=== PATIENT | female | born 1995 | race Two or more races ===

== ENCOUNTER 2021-03-23 07:47 | Emergency (ER) | payer MEDICAID ==
--- NOTE | 2021-03-23 08:12 | EDM.PDOC ---
ED HPI GENERAL MEDICAL PROBLEM - General Chief Complaint: General Stated Complaint: HEAVY BLEEDING Time Seen by Provider: 03/23/21 08:08 Source of Information: Reports: Patient History Limitations: Reports: No Limitations - History of Present Illness INITIAL COMMENTS - FREE TEXT/NARRATIVE: 25-year-old female who reports that last week she took 4 or 5 home tests and all of them were positive. She is unsure of her last normal menstrual period as she has very irregular menses since her IUD was removed in December 2020. She reports this morning she got up to go to the bathroom at around 6:30 to 7 AM and felt like something past and noted that a blood clot in come out her vagina and since then she has had what she feels is heavy vaginal bleeding. She also has developed lower abdominal/pelvic pain and cramping and low back pain. He's pains are aching and cramping. There rated by her as a/10. She has had no nausea or vomiting. No dysuria. She has been eating and drinking normally. She states yesterday she felt somewhat bloated but that is not something that is unusual for her and she really didn't notice anything different yesterday and had no vaginal bleeding yesterday. No fevers or chills. No history of trauma. The patient is a . There are no other associated signs or symptoms. There are no other modifying factors. 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 Social & Family History - Tobacco Use Tobacco Use Status *Q: Former Tobacco User Used Tobacco, but Quit: Yes Month/Year Tobacco Last Used: 2019 Tobacco Use Comment: pt states she used to vape a few years ago but has quit - Caffeine Use Caffeine Use: Reports: None - Alcohol Use Alcohol Use History: No - Recreational Drug Use Recreational Drug Use: No - Living Situation & Occupation Living situation: Reports: Social History Comment: Recently moved here from [facility]. ED ROS GENERAL - Review of Systems Review Of Systems: See Below Constitutional: Denies: Fever, Chills HEENT: Denies: Throat Pain, Throat Swelling Respiratory: Denies: Shortness of Breath, Cough Cardiovascular: Denies: Chest Pain, Palpitations GI/Abdominal: Reports: Abdominal Pain. Denies: Diarrhea, Nausea, Vomiting : Reports: Irregular Menses. Denies: Dysuria, Flank Pain, Frequency, Hematuria Musculoskeletal: Reports: Back Pain. Denies: Neck Pain Skin: Denies: Diaphoresis, Rash Neurological: Denies: Dizziness, Headache Hematologic/Lymphatic: Denies: Easy Bleeding, Easy Bruising ED EXAM, GENERAL - Physical Exam Exam: See Below Exam Limited By: No Limitations General Appearance: Alert, WD/WN, No Apparent Distress Eye Exam: Bilateral Eye: EOMI, Normal Inspection (Sclera are anicteric) Ears: Normal External Exam, Hearing Grossly Normal Ear Exam: Bilateral Ear: Auricle Normal Nose: Normal Inspection, Normal Mucosa, No Blood Throat/Mouth: Normal Inspection, Normal Oropharynx, Normal Voice, No Airway Compromise Head: Atraumatic, Normocephalic Neck: Normal Inspection, Supple, Non-Tender, Full Range of Motion Respiratory/Chest: No Respiratory Distress, Lungs Clear, Normal Breath Sounds, No Accessory Muscle Use, Chest Non-Tender Cardiovascular: Normal Peripheral Pulses, Regular Rate, Rhythm, No Murmur Peripheral Pulses: 2+: Radial (L), Radial (R), Dorsalis Pedis (L), Dorsalis Pedis (R) GI/Abdominal: Normal Bowel Sounds, Soft, No Mass, Tender (Follow-up tenderness in the suprapubic area.). No: Guarding, Rebound (Female) Exam: Normal External Exam, Vaginal Bleeding, Other (Some blood in the posterior fornix. No apparent active bleeding. The cervical os was closed.). No: Cervical Dilatation Back Exam: Normal Inspection, Full Range of Motion. No: CVA Tenderness (R), CVA Tenderness (L) Extremities: Normal Inspection, Normal Range of Motion, Non-Tender, No Pedal Edema, Normal Capillary Refill Neurological: Alert, Oriented, CN II-XII Intact, Normal Cognition, No Motor/Sensory Deficits Psychiatric: Normal Affect Skin Exam: Warm, Dry, Intact, Normal Color, No Rash Course - Vital Signs Last Recorded V/S: Last Vital Signs Temp 36.7 C 03/23/21 10:28 Pulse 84 03/23/21 10:28 Resp 18 03/23/21 10:28 BP 119/76 03/23/21 10:28 Pulse Ox 100 03/23/21 10:28 - Orders/Labs/Meds Orders: Active Orders 24 hr Category Date Time Status ABO/RH TYPE [BBK] Stat Lab 03/23/21 09:00 Results CHLAMYDIA/GC AMPLIFICATION Stat Lab 03/23/21 09:23 Received PATIENT RETYPE [BBK] Stat Lab 03/23/21 09:00 Results Labs: Laboratory Tests 03/23/21 03/23/21 03/23/21 Range/Units 08:41 09:00 09:00 WBC 14.1 H (3.0-10.3) x10-3/uL RBC 4.02 (3.60-5.20) x10(6)uL Hgb 12.2 (11.4-15.5) g/dL Hct 36.7 (34.2-48.2) % MCV 91.1 (76.7-100.5) fL MCH 30.2 (23.9-33.9) pg MCHC 33.1 (31.9-34.8) g/dL RDW 12.8 (12.3-16.5) % Plt Count 210 (151-488) x10(3)uL MPV 9.0 (7.1-12.4) fL Neut % (Auto) 80.7 H (30.8-76.2) % Lymph % (Auto) 12.2 L (18.4-52.1) % [place] % (Auto) 5.9 (4.4-15.7) % Eos % (Auto) 0.8 (0.6-8.1) % Baso % (Auto) 0.4 (0.2-1.5) % Neut # (Auto) 11.4 H (1.5-6.3) x10-3/uL Lymph # (Auto) 1.7 (1.0-4.4) x10-3/uL [place] # (Auto) 0.8 (0.3-1.0) x10-3/uL Eos # (Auto) 0.1 (0.0-0.8) x10-3/uL Baso # (Auto) 0.1 (0.0-0.1) x10-3/uL HCG, Quant 017388 (<5) mIU/mL Urine HCG, Qual Positive H (NEGATIVE) Blood Type 03/23/21 Range/Units 09:00 WBC (3.0-10.3) x10-3/uL RBC (3.60-5.20) x10(6)uL Hgb (11.4-15.5) g/dL Hct (34.2-48.2) % MCV (76.7-100.5) fL MCH (23.9-33.9) pg MCHC (31.9-34.8) g/dL RDW (12.3-16.5) % Plt Count (151-488) x10(3)uL MPV (7.1-12.4) fL Neut % (Auto) (30.8-76.2) % Lymph % (Auto) (18.4-52.1) % [place] % (Auto) (4.4-15.7) % Eos % (Auto) (0.6-8.1) % Baso % (Auto) (0.2-1.5) % Neut # (Auto) (1.5-6.3) x10-3/uL Lymph # (Auto) (1.0-4.4) x10-3/uL [place] # (Auto) (0.3-1.0) x10-3/uL Eos # (Auto) (0.0-0.8) x10-3/uL Baso # (Auto) (0.0-0.1) x10-3/uL HCG, Quant (<5) mIU/mL Urine HCG, Qual (NEGATIVE) Blood Type O POSITIVE - Re-Assessments/Exams Free Text/Narrative Re-Assessment/Exam: 03/23/21 09:00: Patient qualitative test is positive. I will send blood for CBC and a quantitative hCG. I will also send for wet prep and GC and chlamydia. Patient is remaining hemodynamically stable. I will also do a pelvic exam at this point. That will be documented in the physical exam portion of my note. 03/23/21 10:12: The patient's os was closed. No apparent active bleeding at this point. CBC showed white count 14.1 with a hemoglobin of 12.2. Platelet count was normal. The patient is O+. Quantitative hCG was 170,400. The patient will need to look ultrasound and we do not have ultrasound available at [facility] [place]. I previously discussed this with the patient and she would want me to discuss her case with the doctors at [facility] in [place]. 03/23/21 10:30: I discussed the patient's case with Dr. Pérez, ED physician at [facility], and she has agreed to accept the patient in transfer. The patient will be transferred via POV by the to the emergency department at [facility] for ultrasound. The patient remains hemodynamically stable. Departure - Departure Time of Disposition: 10:40 Disposition: DC/Tfer to [facility] 02 Condition: Good Clinical Impression: Vaginal bleeding during , Threatened in first trimester - Discharge Information Referrals: PCP,None [Primary Care Provider] - Forms: ED Department Discharge Additional Instructions: Go directly to the emergency department at [facility]. You are going there to be seen to have a pelvic ultrasound performed as we discussed. You should not have anything to eat or drink and to do so by the doctors at [facility]. Sepsis Event Note (ED) - Evaluation Sepsis Screening Result: No Definite Risk - Focused Exam Vital Signs: Vital Signs Temp Pulse Resp BP Pulse Ox 03/23/21 10:28 36.7 C 84 18 119/76 100 03/23/21 07:56 37.2 C 91 16 135/88 100 - My Orders Last 24 Hours: My Active Orders 03/23/21 09:00 ABO/RH TYPE [BBK] Stat PATIENT RETYPE [BBK] Stat 03/23/21 09:23 CHLAMYDIA/GC AMPLIFICATION Stat - Assessment/Plan Last 24 Hours: My Active Orders 03/23/21 09:00 ABO/RH TYPE [BBK] Stat PATIENT RETYPE [BBK] Stat 03/23/21 09:23 CHLAMYDIA/GC AMPLIFICATION Stat
[2021-03-26 06:08] LABS: CHLAMYDIA TRACHOMATIS, NAA Positive (Negative); NEISSERIA GONORRHOEAE, NAA Negative (Negative)
== END 2021-03-23 10:52 ==
LOC: FB.ED 07:47
DX: O20.0 Threatened abortion (principal); Z87.891 Personal history of nicotine dependence; Z3A.01 Less than 8 weeks gestation of pregnancy
CPT/HCPCS: 36415; 81025; 84702; 85025; 86900; 86901; 87210; 87491; 87591; 99284